=== PATIENT | female | born 1980 | race Caucasian/White ===

== ENCOUNTER 2017-03-19 09:24 | Emergency (ER) | payer BC, MEDICAID ==
[~2017-03-19] VITALS: Ht 180.3 cm; Wt 79.4 kg
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
[2017-03-19] MEDS ORDERED: IBUPROFEN 400 MG TABLET ONE (10:15)
[2017-03-19] MEDS ORDERED: TDAP [DIPH/PERTUSSIS/TET] 0.5 ML VIAL IM ONE ×2 (10:15→10:30)
[2017-03-19] MEDS ORDERED: IBUPROFEN 400 MG TABLET PO ONE (10:30)
--- NOTE | 2017-03-19 11:14 | NUR ---
[facility] at bedside
--- NOTE | 2017-03-19 11:48 | NUR ---
Patient discharged to home in stable condition. Written and verbal after care instructions given. Patient verbalizes understanding of instruction.
[2017-03-19 11:49] VITALS: BP 139/87
== END 2017-03-19 11:49 | disposition home or self-care (01) ==
LOC: ER 09:27
DX: S02.2XXA Fracture of nasal bones, initial encounter for closed fracture (principal); Y04.8XXA Assault by other bodily force, initial encounter; Y93.89 Activity, other specified; Y92.89 Other specified places as the place of occurrence of the external cause; Y99.8 Other external cause status
CPT/HCPCS: 70360; 70486; 90471; 90715; 99284; A4606; Z7610